=== PATIENT | female | born 1975 | race Caucasian/White ===

== ENCOUNTER 2017-06-15 13:35 | Inpatient (IN) | payer OTHER ==
[~2017-06-15] VITALS: Ht 157.5 cm; Wt 65.4 kg
[2017-06-15 14:37] LABS: HEMOGLOBIN 13.6 G/DL (11.9-15.5); MCH 29.1 PG (29.0-34.0); MCHC 33.2 G/DL (30.0-36.0); MCV 87.8 FL (83-99); PLATELET COUNT 181 K/uL (156-360); RBC DIS.WIDTH-CV 13.9 % (11.8-14.6); RED BLOOD COUNT 4.67 M/uL (3.80-5.20); WHITE BLOOD COUNT 16.2 K/uL (4.1-10.2)
[2017-06-15 14:46] LABS: CHLORIDE 102 mEq/L (99-109); POTASSIUM 3.8 mEq/L (3.7-5.4); SODIUM 136 mEq/L (136-147)
[2017-06-15 14:48] LABS: GLUCOSE 100 mg/dL (70-99)
[2017-06-15 14:52] LABS: CREATININE 2.6 mg/dL (0.6-1.3); GFR ESTIMATE (CALCULATED) 22 mL/min/
[2017-06-15 14:53] LABS: UREA NITROGEN (BUN) 24 mg/dL (9-23)
[2017-06-15 15:06] LABS: APPEARANCE CLOUDY ((CLEAR)); BILIRUBIN NEGATIVE; BLOOD MODERATE; COLOR AMBER ((YELLOW)); GLUCOSE (STRIP) NEGATIVE; KETONES NEGATIVE; LEUKOCYTES LARGE; NITRITE NEGATIVE; PROTEIN (STRIP) >=500; SPECIFIC GRAVITY 1.019 (1.000-1.030); UROBILINOGEN 0.2 MG/DL (0.2-1.0)
[2017-06-15 15:33] LABS: BACTERIA 3+ /HPF; EPITHELIAL CELLS 2+ /HPF; MUCUS NONE SEEN /LPF; UCUL ADDED? YES; WHITE BLOOD CELLS TNTC /HPF (0-5)
[2017-06-15] MEDS ORDERED: ANTIVERT12.5 MG PO (18:07)
[2017-06-15] MEDS ORDERED: ASCORBIC ACID500 M3 PO (18:08)
[2017-06-15] MEDS ORDERED: MACROBID100 MG PO (18:08)
[2017-06-15] MEDS ORDERED: IRON18 MG PO (18:09)
[2017-06-15] MEDS ORDERED: VITAMIN D2000 UNI1 PO (18:09)
[2017-06-15] MEDS ORDERED: ADVIL,NUPRIN,M200 MG PO (18:24)
[2017-06-16 06:53] LABS: HEMATOCRIT 30.8 % (36.0-46.0); MCH 29.1 PG (29.0-34.0); MCHC 32.8 G/DL (30.0-36.0); MCV 88.8 FL (83-99); RBC DIS.WIDTH-CV 14.2 % (11.8-14.6); RBC DIS.WIDTH-SD 45.4 % (39-53); WHITE BLOOD COUNT 8.4 K/uL (4.1-10.2)
[2017-06-16 07:08] LABS: HEMOGLOBIN 10.1 G/DL (11.9-15.5); RED BLOOD COUNT 3.47 M/uL (3.80-5.20)
[2017-06-16 07:22] LABS: ALBUMIN 2.4 G/DL (3.2-4.8); ALKALINE PHOSPHATASE 96 IU/L (3-129); ALT (GPT) 27 IU/L (3-49); AST (GOT) 30 IU/L (2-34); CHLORIDE 111 MEQ/L (99-109); CREATININE 2.4 MG/DL (0.6-1.3); GFR ESTIMATE (CALCULATED) 24 mL/min/; GLUCOSE 121 mg/dL (70-99); POTASSIUM 3.7 MEQ/L (3.7-5.4); SODIUM 137 MEQ/L (136-147); TOTAL BILIRUBIN 1.1 MG/DL (0.0-1.0); TOTAL PROTEIN 5.2 G/DL (6.4-8.3); UREA NITROGEN (BUN) 27 mg/dL (9-23)
[2017-06-16 07:30] VITALS: BP 84/54
[2017-06-16 07:55] LABS: ABS NEUTROPHIL COUNT 7.3; ATYPICAL LYMPHOCYTE 0.9 %; BAND NEUTROPHILS 17.4 % (0-8.0); BASOPHILS 0.9 %; EOSINOPHIL ABS CT 0; LYMPHOCYTES 9.5 % (15.0-45.0); MONOCYTES 1.7 % (0-9.0); PLAT.SUFFICIENCY DECREASED; SEG.NEUTROPHILS 69.6 % (46.0-76.0)
[2017-06-16 07:56] LABS: PLATELET COUNT 116 K/uL (156-360)
[2017-06-16 10:04] VITALS: BP 85/58
[2017-06-16 15:15] VITALS: BP 88/52
[2017-06-16 20:00] VITALS: BP 99/59
[2017-06-16 23:55] VITALS: BP 88/50
[2017-06-17 04:00] VITALS: BP 96/64
[2017-06-17 05:38] LABS: HEMATOCRIT 29.2 % (36.0-46.0); HEMOGLOBIN 9.8 G/DL (11.9-15.5); MCH 29.5 PG (29.0-34.0); MCHC 33.6 G/DL (30.0-36.0); PLATELET COUNT 109 K/uL (156-360); RBC DIS.WIDTH-CV 14.5 % (11.8-14.6); RBC DIS.WIDTH-SD 46.4 % (39-53); RED BLOOD COUNT 3.32 M/uL (3.80-5.20); WHITE BLOOD COUNT 8.3 K/uL (4.1-10.2)
[2017-06-17 05:54] LABS: ALBUMIN 2.2 G/DL (3.2-4.8); ALKALINE PHOSPHATASE 88 IU/L (3-129); ALT (GPT) 22 IU/L (3-49); AST (GOT) 18 IU/L (2-34); CHLORIDE 115 MEQ/L (99-109); GFR ESTIMATE (CALCULATED) 31 mL/min/; GLUCOSE 102 mg/dL (70-99); POTASSIUM 3.7 MEQ/L (3.7-5.4); SODIUM 140 MEQ/L (136-147); TOTAL BILIRUBIN 1.2 MG/DL (0.0-1.0); TOTAL PROTEIN 4.9 G/DL (6.4-8.3); UREA NITROGEN (BUN) 26 mg/dL (9-23)
[2017-06-17 05:55] LABS: CREATININE 1.9 MG/DL (0.6-1.3)
[2017-06-17 05:59] LABS: PLAT.SUFFICIENCY DECREASED
[2017-06-17 08:43] VITALS: BP 93/57
[2017-06-17 10:43] VITALS: BP 95/60
[2017-06-17 16:26] VITALS: BP 96/66
[2017-06-17 19:01] VITALS: BP 90/54
[2017-06-17 23:14] VITALS: BP 100/69
[2017-06-18 03:40] VITALS: BP 101/63
[2017-06-18 07:20] VITALS: BP 101/69
[2017-06-18 08:03] LABS: HEMATOCRIT 29.9 % (36.0-46.0); HEMOGLOBIN 9.9 G/DL (11.9-15.5); MCH 28.9 PG (29.0-34.0); MCHC 33.1 G/DL (30.0-36.0); MCV 87.2 FL (83-99); RBC DIS.WIDTH-CV 14.6 % (11.8-14.6); RBC DIS.WIDTH-SD 46.5 % (39-53); RED BLOOD COUNT 3.43 M/uL (3.80-5.20); WHITE BLOOD COUNT 9.2 K/uL (4.1-10.2)
[2017-06-18 08:04] LABS: PLATELET COUNT 149 K/uL (156-360)
[2017-06-18 08:19] LABS: CHLORIDE 116 MEQ/L (99-109); POTASSIUM 3.4 MEQ/L (3.7-5.4); SODIUM 140 MEQ/L (136-147)
[2017-06-18 08:25] LABS: GFR ESTIMATE (CALCULATED) 44 mL/min/; GLUCOSE 89 mg/dL (70-99); UREA NITROGEN (BUN) 24 mg/dL (9-23)
[2017-06-18 08:26] LABS: CREATININE 1.4 MG/DL (0.6-1.3)
[2017-06-18 11:03] VITALS: BP 105/73
[2017-06-18 11:42] LABS: BENZODIAZEPINES, URINE SCREEN Negative (200 ng/mL)
[2017-06-18 15:48] VITALS: BP 108/76
[2017-06-18 23:48] VITALS: BP 126/78
[2017-06-19 07:13] LABS: BASOPHIL (%) 0.3 % (0-1); EOSINOPHIL (%) 1.8 % (0-5); EOSINOPHIL COUNT 0.2 K/uL (0-0.3); HEMATOCRIT 34.2 % (36.0-46.0); HEMOGLOBIN 11.1 G/DL (11.9-15.5); IMMATURE GRANULOCYTE (%) 2.8 % (0.0-0.7); LYMPHOCYTE COUNT 1.8 K/uL (1.0-2.8); MCH 28.1 PG (29.0-34.0); MCHC 32.5 G/DL (30.0-36.0); MCV 86.6 FL (83-99); MONOCYTE (%) 14.2 % (3-12); MONOCYTE COUNT 1.4 K/uL (0-0.8); NEUTROPHIL (%) 61.9 % (45-76); NEUTROPHIL COUNT 5.9 K/uL (1.8-6.4); PLATELET COUNT 187 K/uL (156-360); RBC DIS.WIDTH-CV 14.6 % (11.8-14.6); RBC DIS.WIDTH-SD 46.2 % (39-53); RED BLOOD COUNT 3.95 M/uL (3.80-5.20); WHITE BLOOD COUNT 9.6 K/uL (4.1-10.2)
[2017-06-19 07:49] LABS: CHLORIDE 111 MEQ/L (99-109); CREATININE 1.2 MG/DL (0.6-1.3); GFR ESTIMATE (CALCULATED) 53 mL/min/; GLUCOSE 85 mg/dL (70-99); SODIUM 137 MEQ/L (136-147); UREA NITROGEN (BUN) 18 mg/dL (9-23)
[2017-06-19 08:00] VITALS: BP 103/55
[2017-06-19 15:00] VITALS: BP 123/60
[2017-06-19 19:10] VITALS: BP 107/71
[2017-06-19 23:00] VITALS: BP 112/70
[2017-06-20 04:00] VITALS: BP 105/76
[2017-06-20 05:40] LABS: HEMATOCRIT 32.6 % (36.0-46.0); HEMOGLOBIN 10.6 G/DL (11.9-15.5); MCH 27.9 PG (29.0-34.0); MCHC 32.5 G/DL (30.0-36.0); MCV 85.8 FL (83-99); PLATELET COUNT 198 K/uL (156-360); RBC DIS.WIDTH-CV 14.4 % (11.8-14.6); RBC DIS.WIDTH-SD 44.3 % (39-53); WHITE BLOOD COUNT 9.2 K/uL (4.1-10.2)
[2017-06-20 06:03] LABS: CHLORIDE 109 MEQ/L (99-109); CREATININE 1.1 MG/DL (0.6-1.3); GFR ESTIMATE (CALCULATED) 58 mL/min/; GLUCOSE 82 mg/dL (70-99); POTASSIUM 3.6 MEQ/L (3.7-5.4); SODIUM 138 MEQ/L (136-147); UREA NITROGEN (BUN) 13 mg/dL (9-23)
[2017-06-20 06:25] LABS: ABS NEUTROPHIL COUNT 6.5; ANISOCYTOSIS 1+; ATYPICAL LYMPHOCYTE 3.5 %; BAND NEUTROPHILS 1.7 % (0-8.0); EOSINOPHIL ABS CT 0.1; EOSINOPHILS 0.9 % (0-5.0); HYPOCHROMASIA 1+; MACROCYTES 1+; METAMYELOCYTES 0.9 %; MONOCYTES 11.3 % (0-9.0); PLAT.SUFFICIENCY ADEQUATE; POLYCHROMASIA 2+; SEG.NEUTROPHILS 68.7 % (46.0-76.0); TOXIC GRANULATION 1+
[2017-06-20 07:29] VITALS: BP 101/64
[2017-06-20 11:30] VITALS: BP 107/72
[2017-06-20 15:31] VITALS: BP 121/76
[2017-06-21] VITALS (7 sets, daily range): BP systolic 100–124; BP diastolic 62–81
[2017-06-21 05:50] LABS: BASOPHIL (%) 0.5 % (0-1); EOSINOPHIL (%) 1.3 % (0-5); EOSINOPHIL COUNT 0.1 K/uL (0-0.3); HEMATOCRIT 30.7 % (36.0-46.0); HEMOGLOBIN 10.3 G/DL (11.9-15.5); IMMATURE GRANULOCYTE (%) 4.8 % (0.0-0.7); LYMPHOCYTE (%) 25.8 % (15-42); LYMPHOCYTE COUNT 2.2 K/uL (1.0-2.8); MCH 28.5 PG (29.0-34.0); MCHC 33.6 G/DL (30.0-36.0); MCV 84.8 FL (83-99); MONOCYTE (%) 9.9 % (3-12); MONOCYTE COUNT 0.9 K/uL (0-0.8); NEUTROPHIL (%) 57.7 % (45-76); PLATELET COUNT 254 K/uL (156-360); RBC DIS.WIDTH-SD 43.7 % (39-53); RED BLOOD COUNT 3.62 M/uL (3.80-5.20); WHITE BLOOD COUNT 8.6 K/uL (4.1-10.2)
[2017-06-21 06:08] LABS: CHLORIDE 107 MEQ/L (99-109); GFR ESTIMATE (CALCULATED) > 59 mL/min/; GLUCOSE 88 mg/dL (70-99); POTASSIUM 3.2 MEQ/L (3.7-5.4); SODIUM 138 MEQ/L (136-147); UREA NITROGEN (BUN) 15 mg/dL (9-23)
[2017-06-22 00:19] VITALS: BP 99/62
[2017-06-22 04:01] VITALS: BP 110/72
[2017-06-22 06:44] VITALS: BP 136/82
[2017-06-22 06:46] LABS: BASOPHIL (%) 0.1 % (0-1); EOSINOPHIL (%) 0.2 % (0-5); HEMATOCRIT 30.1 % (36.0-46.0); HEMOGLOBIN 10.4 G/DL (11.9-15.5); IMMATURE GRANULOCYTE (%) 3.8 % (0.0-0.7); LYMPHOCYTE (%) 19.4 % (15-42); MCH 29.2 PG (29.0-34.0); MCHC 34.6 G/DL (30.0-36.0); MCV 84.6 FL (83-99); MONOCYTE (%) 9.6 % (3-12); NEUTROPHIL (%) 66.9 % (45-76); NEUTROPHIL COUNT 6.8 K/uL (1.8-6.4); NRBC (%) 0.2 /100 WBC (0-0); PLATELET COUNT 313 K/uL (156-360); RBC DIS.WIDTH-CV 14.2 % (11.8-14.6); RBC DIS.WIDTH-SD 42.9 % (39-53); RED BLOOD COUNT 3.56 M/uL (3.80-5.20); WHITE BLOOD COUNT 10.2 K/uL (4.1-10.2)
[2017-06-22 06:52] LABS: CHLORIDE 107 MEQ/L (99-109); GFR ESTIMATE (CALCULATED) > 59 mL/min/; GLUCOSE 102 mg/dL (70-99); POTASSIUM 3.6 MEQ/L (3.7-5.4); SODIUM 139 MEQ/L (136-147); UREA NITROGEN (BUN) 18 mg/dL (9-23)
[2017-06-22 07:42] VITALS: BP 116/78
[2017-06-22] MEDS ORDERED: CIPRO500 MG PO ×2 (12:01→14:40)
[2017-06-22 12:24] VITALS: BP 109/71
[2017-06-22] MEDS ORDERED: OXYCODONE-APAP1 EACH PO (12:49)
== END 2017-06-22 16:43 | disposition home or self-care (01) | DRG 854 ==
LOC: EME 13:35 → EDOF 22:11 → 4EAST 22:11 → ENRESERV 22:12 → 4EAST 06-16 07:26 → ENRESERV 06-17 14:23 → 2EAST 06-17 16:07
PROVIDERS: Hospitalist; Internal Medicine; Student in an Organized Health Care Education/Training Program
PROC: 0T9130Z Drainage of Left Kidney with Drainage Device, Percutaneous Approach (ICD-10-PCS; principal; 2017-06-15)
PROC: 0TC78ZZ Extirpation of Matter from Left Ureter, Via Natural or Artificial Opening Endoscopic (ICD-10-PCS; 2017-06-21)
PROC: 0T778DZ Dilation of Left Ureter with Intraluminal Device, Via Natural or Artificial Opening Endoscopic (ICD-10-PCS; 2017-06-21)
DX: A41.59 Other Gram-negative sepsis (principal); N17.9 Acute kidney failure, unspecified; E87.2 Acidosis; R65.20 Severe sepsis without septic shock; N13.6 Pyonephrosis; I95.9 Hypotension, unspecified; Z87.440 Personal history of urinary (tract) infections; N20.2 Calculus of kidney with calculus of ureter; E87.6 Hypokalemia; F17.200 Nicotine dependence, unspecified, uncomplicated; Z87.442 Personal history of urinary calculi
CPT/HCPCS: 50433; 74176; 80048; 80053; 80170; 80306 90; 81003; 83605; 85025; 85027; 87040; 87077; 87086; 87186; 87801; 99281; 99285; C1758; C1769; C2625; J0131; J0692; J0696; J1170; J1580; J1644; J1885; J2270; J2405; J3010; J3370; J3480; J7030; J7050; J7120